=== PATIENT | male | born 1960 ===

== ENCOUNTER → 2018-02-27 15:53 | Emergency (ER) | payer BC ==
[~2018-02-27 15:53] MED LIST: Acetaminophen TAB* 325 MG PO ONE; Cephalexin CAP* 500 MG PO ONE; Tetan/Diph/Pertus SYR(Tdap)* 0.5 ML SYR(BOOSTRIX) use SYR IM ONE
--- NOTE | 2018-02-27 16:35 | ED ---
Laceration/Wound HPI - HPI Summary HPI Summary: Patient is a 58-year-old male who presents emergency department for laceration to his left thumb that occurred just prior to arrival. Pt. states he was using a circular saw at home when he accidentally cut the tip of his left thumb. Past medical history of hypertension. He is unaware of his last tetanus immunization. Symptoms are mild in severity. Touching affected area makes symptoms worse. Rest makes symptoms better. - History of Current Complaint Stated Complaint: LT THUMB LAC Time Seen by Provider: 02/27/18 16:01 Hx Obtained From: Patient Pain Intensity: 3 - Allergy/Home Medications Allergies/Adverse Reactions: Allergies Allergy/AdvReac Type Severity Reaction Status Date / Time MS Levofloxacin Allergy See Comment Verified 02/27/18 16:25 [From Norberto] PMH/Surg Hx/FS Hx/Imm Hx Previously Healthy: Yes Cardiovascular History: Reports: Hx Hypertension Infectious Disease History: No Infectious Disease History: Denies: Traveled Outside the [place] in Last 30 Days - Social History Occupation: Employed Full-time Lives: With Family Alcohol Use: Rare Substance Use Type: Reports: None Smoking Status (MU): Never Smoked Tobacco Review of Systems Positive: Other - laceration to left thumb All Other Systems Reviewed And Are Negative: Yes Physical Exam Triage Information Reviewed: Yes Vital Signs On Initial Exam: Initial Vitals Temp Pulse Resp BP Pulse Ox 96.4 F 81 16 140/86 99 02/27/18 15:55 02/27/18 15:55 02/27/18 15:55 02/27/18 15:55 02/27/18 15:55 Vital Signs Reviewed: Yes Appearance: Positive: Well-Appearing - Pt. sitting on bed in NAD. present. Skin: Positive: Warm, Dry Head/Face: Positive: Normal Head/Face Inspection Eyes: Positive: Normal, EOMI Neck: Positive: Supple Musculoskeletal: Positive: Other - Amputation of the very distal aspect of the left thumb. Minimal active bleeding. I cannot visualize bone. Neurological: Positive: Normal, CN Intact II-III Psychiatric: Positive: Affect/Mood Appropriate Procedures - Splinting Left Thumb Hand-Made Type: orthoglass Splint: thumb spica Pre-Proc Neuro Vasc Exam: normal Post-Proc Neuro Vasc Exam: normal Diagnostics - Vital Signs Vital Signs Temp Pulse Resp BP Pulse Ox 02/27/18 15:55 96.4 F 81 16 140/86 99 - Laboratory Lab Statement: Any lab studies that have been ordered have been reviewed, and results considered in the medical decision making process. Laceration Repair Course/Dx - Course Course Of Treatment: Patient presenting with amputation to the distal aspect of his left thumb. X-ray shows fracture to the distal aspect. Tetanus was updated. Wound was extensively irrigated and cleaned. Neosporin and bulky dressing was placed. Thumb spica splint was also placed. We'll start patient on Keflex. Advised him to call orthopedic clinic tomorrow for a close follow- up appointment. Work excuse given. Small prescription of Lortab was prescribed. MEDIA REPORTER reviewed and no red flags noted. Pt. will return if symptoms change or worsen. Patient understands and agrees with plan. - Differential Dx Differental Diagnoses: Abrasion, Avulsion, Laceration - Clinical Impression Provider Diagnoses: Traumatic amputation of fingertip, Open fracture Discharge - Sign-Out/Discharge Documenting (check all that apply): Patient Departure - Discharge Plan Condition: Good Disposition: HOME Prescriptions: Cephalexin CAP* [Keflex CAP*] 500 mg PO BID #20 cap Hydrocodone/Acetaminophen [Hydrocodone/Acetaminophen 5-325 mg] 1 tab PO Q6H #12 tab MDD 4tablets Patient Education Materials: Finger Fracture (ED), Finger Amputation (ED) Forms: *Work Release Referrals: Kavon Fofana MD [Primary Care Provider] - Dayday Amin MD [Medical Doctor] - Additional Instructions: Call the orthopedic clinic tomorrow morning for an appointment Keep wound clean and dry Ice and elevate Medication as directed Return to ER if symptoms change or worsen - Billing Disposition and Condition Condition: GOOD Disposition: Home
[2018-02-27 17:30] VITALS: BP 136/78
== END | disposition home or self-care (01) ==
LOC: ED 15:53
DX: S68.012A Complete traumatic metacarpophalangeal amputation of left thumb, initial encounter (principal); W31.2XXA Contact with powered woodworking and forming machines, initial encounter; Y92.009 Unspecified place in unspecified non-institutional (private) residence as the place of occurrence of the external cause; Z23 Encounter for immunization; Z88.1 Allergy status to other antibiotic agents
CPT/HCPCS: 90471; 90715; 99282; A9270-GY

== ENCOUNTER 2018-03-02 11:46 | Day surgery (SDC) | payer BC ==
--- NOTE | 2018-03-01 20:27 | HP ---
PREOPERATIVE HISTORY AND PHYSICAL EXAM: DATE OF ADMISSION: 03/02/18 DATE OF OFFICE VISIT/ENCOUNTER: 03/01/18 ATTENDING SURGEON: Iesha Smith MD * (DICTATED BY KERRIE COLLIER) PROCEDURE: Revision amputation, left thumb. CHIEF COMPLAINT: Partial amputation, left thumb. HISTORY OF PRESENT ILLNESS: This is a 58-year-old male, who sustained injury to his left thumb on 02/27/18. He was at home working with his chop saw when the piece of wood he was pushing through got caught up and ended up taking his thumb into the saw. He chopped off the end of his left thumb. He was seen at [facility] and had x-rays, which showed an amputation of the very distal portion of the left thumb with some involvement of the tuft to the distal phalanx. He was placed on Keflex and is using hydrocodone for pain, although reports it is not helping him very much. 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 After evaluation by Dr. Smith, he has consented to proceed with surgical intervention at this time in the form of a revision amputation, left thumb. PAST MEDICAL HISTORY: Hypertension. PAST SURGICAL HISTORY: Left carpal tunnel release. CURRENT MEDICATIONS: 1. Atenolol 100 mg daily. 2. Lisinopril 25 mg daily. ALLERGIES: LEVAQUIN causes anaphylactic shock. FAMILY MEDICAL HISTORY: Cancer, hypertension. SOCIAL HISTORY: The patient works as the Director of Facilities for [employer]. He does not smoke cigarettes. He reports quitting chewing tobacco approximately 17 years ago. He denies recreational drug use. He drinks alcohol on regular occasion. REVIEW OF SYSTEMS: Negative for general, cephalic, cardiovascular, respiratory , GI, , other musculoskeletal, integumentary is positive for current complaint , endocrine, neurologic, and hematologic symptoms. Infectious Disease: Negative for MRSA, hepatitis C, HIV. PHYSICAL EXAMINATION GENERAL: Well-developed, well-nourished, 58-year-old male in no acute distress. VITAL SIGNS: Height is 5 feet 9 inches, weight 253 pounds. Blood pressure 140/ 88. HEENT: Normocephalic, atraumatic. Pupils are equal, round, and reactive to light and accommodation. Extraocular movements are intact. NECK: Supple. No palpable lymph nodes. Throat is clear. PULMONARY: Lungs are clear to auscultation bilaterally. No wheezes, rales, or rhonchi. CARDIOVASCULAR: Regular rate and rhythm. S1 and S2. No murmurs, rubs, or gallops. No edema. ABDOMEN: Positive bowel sounds, soft, nontender. NEUROLOGIC: Alert and oriented x3. Cranial nerves II through XII are intact. MUSCULOSKELETAL: On exam of his left thumb, he has an amputation on the distal aspect of the thumb, approximately half of his fingernail was missing. He has a good amount of volar skin distal to the IP flexion crease. IMPRESSION: Partial amputation of the left thumb. PLAN: Revision amputation of left thumb with Dr. Smith on 03/02/18. He will return to the office 10 days postop for followup. A prescription for Percocet was e-scribed to the patient's pharmacy for postoperative pain management. KERRIE COLLIER [id number]/[facility] #: [id number] [facility]
[~2018-03-02 11:46] MED LIST changes: -Acetaminophen TAB* 325 MG PO ONE; +Acetaminophen TAB* 325 MG PO PRN; +Buffered Lidocaine 0.9% SYRIN* 5 ML/SYR SYRINGE INTRADERM ONE; -Cephalexin CAP* 500 MG PO ONE; +DiMENhydriNATE IV* 50 MG/ML VIAL IV PUSH PRN; +HYDROcodone/ACETAMIN 5-325 MG* 1 TAB PO PRN; +Naloxone* 0.4 MG/ML 1 ML VIAL IV PRN; +Ondansetron INJ* 2 MG/ML VIAL IV PRN; +PROCHLORPERAZINE INJ 5 MG/ML 2 ML VIAL IV PRN; -Tetan/Diph/Pertus SYR(Tdap)* 0.5 ML SYR(BOOSTRIX) use SYR IM ONE; +fentaNYL* 50 MCG/ML 2 ML VIAL (100 MCG VIAL) IV PRN
[2018-03-02] MEDS ORDERED: Propofol* 10 MG/ML 20 ML BTL ONE (12:45)
[2018-03-02] MEDS ORDERED: Dexamethasone IV* 4 MG/ML 1 ML (4 MG) ONE (12:45)
[2018-03-02] MEDS ORDERED: Ketorolac INJ* 30 MG/ML 1 ML VIAL ONE (12:45)
[2018-03-02] MEDS ORDERED: Midazolam* 1 MG/ML 2 ML VIAL (2 MG) ONE (12:45)
[2018-03-02] MEDS ORDERED: fentaNYL* 50 MCG/ML 2 ML VIAL (100 MCG VIAL) ONE ×2 (12:45→13:16)
[2018-03-02] MEDS ORDERED: Lidocaine 2% PF * 5 ML VIAL ONE (12:45)
[2018-03-02] MEDS ORDERED: Famotidine IV* 10 MG/ML 2 ML (20 mg) ONE (12:47)
[2018-03-02] MEDS ORDERED: Lidocaine 1% INJ* 10 MG/ML 30 ML SDV ONE (12:55)
[2018-03-02] MEDS ORDERED: Labetalol IV* 5 MG/ML 20 ML VIAL ONE (13:28)
[2018-03-02 15:15] VITALS: BP 159/111
--- NOTE | 2018-03-03 02:19 | OP ---
DATE OF OPERATION: 03/02/18 [facility] DATE OF : 64 SURGEON: Iesha Smith MD SCIENTIFIC SPECIALIST: KERRIE Conteh ANESTHESIA: General. PRE-OP DIAGNOSIS: Partial amputation in the left thumb. POST-OP DIAGNOSIS: Partial amputation in the left thumb. OPERATIVE PROCEDURE: Revision amputation, left thumb, with a V-Y advancement flap. INDICATIONS: Cornelius is a 58-year-old male who injured his left thumb with a chop saw. He has an amputation at the distal aspect of the distal phalanx half way through the finger nail. He presents for revision amputation. ESTIMATED BLOOD LOSS: Zero. TOURNIQUET TIME: About 15 minutes. DESCRIPTION OF PROCEDURE: The patient was brought to the operating room, was given a general anesthetic and then was given a digital block at the end of the case with 10 cc of 1% plain lidocaine. The skin of his left upper extremity was prepped and draped in the usual sterile fashion. The thumb was exsanguinated with a Tourni-Cot. The Tourni-Cot was left in place during the case. The loose bone fragments were removed with a rongeur and then the wound was copiously irrigated with saline. A V-Y advancement flap was made by cutting down to the IP flexion crease just for the skin and then with subcutaneous dissection, the skin flap was elevated and transposed distally. It was secured with interrupted suture of 4-0 nylon, which completely covered the wound. The wound was dressed with Xeroform, 4x4, Webril, and Coban. The patient tolerated the procedure well and was brought to the recovery room in good condition. [id number]/[facility] #: [id number] [facility]
== END 2018-03-02 14:36 | disposition home or self-care (01) ==
LOC: OREAST 11:46
PROVIDERS: ATTEND Orthopaedic Surgery
DX: S68.522A Partial traumatic transphalangeal amputation of left thumb, initial encounter (principal); I10 Essential (primary) hypertension; W29.3XXA Contact with powered garden and outdoor hand tools and machinery, initial encounter; Y92.009 Unspecified place in unspecified non-institutional (private) residence as the place of occurrence of the external cause
CPT/HCPCS: J1100; J1885; J2250; J2704; J3010